=== PATIENT | female | born 1950 | race Caucasian/White ===

== ENCOUNTER → 2022-03-13 14:32 | Outpatient (BNVA) | payer MEDICARE, OTHER, SELFPAY | PROVIDERS: Family Provider Family Medicine; PCP Family Medicine; Visit Provider Internal Medicine Cardiovascular Disease | DX: I25.10 Atherosclerotic heart disease of native coronary artery without angina pectoris (principal); R06.02 Shortness of breath; I77.811 Abdominal aortic ectasia; E78.2 Mixed hyperlipidemia; I10 Essential (primary) hypertension; Z87.891 Personal history of nicotine dependence; R94.31 Abnormal electrocardiogram [ECG] [EKG] | CPT/HCPCS: 93005; 99204 ==

== ENCOUNTER 2022-04-24 13:34 | Outpatient (CLI) | payer MEDICARE, OTHER, SELFPAY ==
--- NOTE | 2022-04-24 13:45 | USCV_ITS ---
Meka Garibay Age: 71 Gender: F : 1950 Exam Date: 04/24/2022 13:49 Ordering Phys: China Lima MD ([email or web address]) Technologist: TAMIA [place] [facility] [place]: SOB/ASHD BP: 124 / 80 HR: 61 Rhythm: Sinus Technical Quality: Good MEASUREMENTS (Male / Female) Normal Values 2D ECHO LV Diastolic Diameter PLAX 4.4 cm 4.2 - 5.9 / 3.9 - 5.3 cm LV Systolic Diameter PLAX 3.3 cm IVS Diastolic Thickness 1.2 cm 0.6 - 1.0 / 0.6 - 0.9 cm IVS Systolic Thickness 1.8 cm LVPW Diastolic Thickness 0.9 cm 0.6 - 1.0 / 0.6 - 0.9 cm LVPW Systolic Thickness 1.3 cm LVOT Diameter 2.0 cm LV Ejection Fraction 2D Teich 50.3 % LV Ejection Fraction MOD 2C 55.7 % LV Ejection Fraction 2C AL 59.7 % LA Diameter 2.7 cm LA Width 2.8 cm LA Height 4.5 cm RA Width 3.1 cm RA Height 4.4 cm Aorta at Sinotubular Diameter 2.7 cm IVC Diameter 1.7 cm M-MODE MV E Point Septal Separation 0.7 cm DOPPLER AV Peak Velocity 156.0 cm/s LVOT Peak Velocity 111.0 cm/s AV Area Cont Eq vti 2.8 cm squared AV Area Cont Eq pk 2.3 cm squared MV Peak Velocity 103.0 cm/s MV Area PHT 2.5 cm squared Mitral E to A Ratio 0.7 MV E' Velocity 36.0 cm/s Mitral E to MV E' Ratio 11.2 Mitral E to LV E' Lateral Ratio 12.2 Mitral E to LV E' Septal Ratio 10.3 TR Peak Velocity 87.7 cm/s TR Peak Gradient 3.1 mmHg Right Atrial Pressure 3.0 mmHg Pulmonary Artery Systolic Pressu 6.1 mmHg PV Peak Velocity 99.0 cm/s RV Acceleration Time 0.1 s RV Ejection Time 0.3 s RV AcT/ET 0.3 FINDINGS Left Ventricle Normal left ventricular size and systolic function, EF 59 %. No regional wall motion abnormalities. Grade I/IV diastolic dysfunction (abnormal relaxation filling pattern), normal to mildly elevated filling pressures. Right Ventricle The right ventricle is normal in size and function. Right Atrium The right atrium is normal in size. Left Atrium The left atrium is normal in size. Mitral Valve No gross abnormalities noted Aortic Valve No gross abnormalities noted Tricuspid Valve Trace tricuspid valve regurgitation. Estimated pulmonary artery peak systolic pressure within normal limits Pulmonic Valve Pulmonic valve not well visualized. Pericardium Normal pericardium without effusion. Aorta Normal ascending aorta dimension. IVC Normal inferior vena cava. CONCLUSIONS Normal left ventricular size and systolic function, EF 59 %. No regional wall motion abnormalities. Grade I/IV diastolic dysfunction (abnormal relaxation filling pattern), normal to mildly elevated filling pressures. Trace tricuspid valve regurgitation. Estimated pulmonary artery peak systolic pressure within normal limits. There is no pericardial effusion. There are no intracardiac masses. No similar previous studies are available for comparison Dr China Lima MD [facility] (Electronically Signed) Final Date: 25 April 2022 15:20 S
== END 2022-04-24 13:35 | disposition home or self-care (01) ==
LOC: RAD 13:35
PROVIDERS: PCP Family Medicine; Visit Provider Internal Medicine Cardiovascular Disease
DX: I25.10 Atherosclerotic heart disease of native coronary artery without angina pectoris (principal); R06.02 Shortness of breath; I07.1 Rheumatic tricuspid insufficiency
CPT/HCPCS: 93306

== ENCOUNTER → 2022-06-26 13:50 | Outpatient (BNVA) | payer MEDICARE, OTHER, SELFPAY | PROVIDERS: PCP Family Medicine; Visit Provider Internal Medicine Cardiovascular Disease | DX: I70.90 Unspecified atherosclerosis (principal); I77.811 Abdominal aortic ectasia; I10 Essential (primary) hypertension; J44.9 Chronic obstructive pulmonary disease, unspecified; E78.2 Mixed hyperlipidemia; Z87.891 Personal history of nicotine dependence | CPT/HCPCS: 99214 ==

== ENCOUNTER 2022-09-18 08:51 | Outpatient (CLI) | payer MEDICARE, OTHER, SELFPAY ==
--- NOTE | 2022-09-18 | ECG_ITS ---
[facility] Test Date: 2022-09-18 Pat Name: Meka Garibay Department: Room: Gender: Female [place] Tier: : 1950 Requested By: China Lima Order Number: [id number] Sanjay MD: China Lima M.D. Interpretive Statements NAME OF STUDY: LEXISCAN SESTAMIBI STRESS TEST INDICATION: Shortness of Breath, PROCEDURE: At the baseline, the EKG revealed sinus rhythm with poor R wave progression. Diffuse nonspecific T wave changes. Normal CA and QRS duration.. The baseline heart was 63 bpm with a blood pressue of 128/68 mm of Hg Lexiscan was infused over a period of 20 seconds. A total of 0.4 milligrams of Lexiscan was infused. The stress phase was continued for a total of 5 minutes. Heart rate at the end of the stress phase was 68 bpm with a blood pressure 112/71 mm of Hg. The EKG at the peak infusion revealed no significant changes. Sestamibi was injected 20 seconds after the Lexiscan infusion. Heart rate at the end of the recovery phase was 71 bpm with a blood pressure of 114/66 mm of Hg. CONCLUSION: 1. No significant EKG changes with the LexiScan infusion 2. No LexiScan induced chest pain or cardiac arrhythmia 3. Normal blood pressure and heart rate response 4. Sestamibi/sestamibi perfusion scan pending; see separate report. Electronically Signed On 09-30-2022 14:31:53 WATCH LEADER by China Lima M.D. [id number]
[2022-09-18 09:26] VITALS: BMI 31.9
--- NOTE | 2022-09-18 09:31 | NMCV_ITS ---
NM milvia perf SPECT r/s* [id number] Meka Garibay Age: 71 Gender: F : 1950 Exam Date: 09/18/2022 10:21 Ordering Phys: China Lima MD ([email or web address]) Technologist: APRIL Sanford Exam Location: [facility] Indications: CORONARY ANGIOPLASTY STATUS; ATHEROSCLEROTIC HEART DISEASE STRESS TEST Please see separate stress test report in [facility] for full findings IMAGE PROTOCOL Rest/Stress 1 Lexiscan Day Radiopharmaceutical Dose (mCi) Administration Site Administered by Rest: Tc-99m 10.8 IV APRIL Hamm Sestamibi Stress:Tc-99m 32.8 IV APRIL Sanford Sestamirussel Rest: 18-Sep-2022 60 Discovery 630 Stress: 18-Sep-2022 30 Discovery 630 0.4mg Lexiscan. Images obtained in supine and prone position. SPECT RESULTS Technical Quality: Excellent Raw Data Analysis: Normal Image Corrections: No attenuation or motion correction applied Summed Stress Score: 0 Summed Rest Score: 0 Summed Difference Score: 0 PERFUSION FINDINGS Fairly uniform myocardial tracer uptake with no significant perfusion abnormalities FUNCTIONAL RESULTS (calculated via Gated SPECT) Stress Image LV EF (%): 73 Stress EDV (mL):94 TID: 0.95 Stress ESV (mL):25 FUNCTIONAL FINDINGS: Segmental wall motion analysis revealing no gross wall motion abnormalities IMPRESSIONS 1. Unremarkable Myocardial perfusion imaging. 2. Normal LV ejection fraction of 73%. 3. LV wall motion analysis revealing no gross wall motion abnormalities. 4. Normal LV volume. Low probability for coronary ischemia, based on the above findings Dr China Lima MD [facility] (Electronically Signed) Final Date: 18 September 2022 13:43 S
[2022-09-18] MEDS: regadenoson 0.4 Mg/5 ml Syringe IVP (11:30)
[2022-09-18 11:32] VITALS: BP 114/66; PULSE 67
== END 2022-09-18 08:52 | disposition home or self-care (01) ==
LOC: CDL 08:54
PROVIDERS: PCP Family Medicine; Visit Provider Internal Medicine Cardiovascular Disease
DX: R06.02 Shortness of breath (principal); Z98.61 Coronary angioplasty status; I25.10 Atherosclerotic heart disease of native coronary artery without angina pectoris
CPT/HCPCS: 36415; 78452; 93017; 96374; A9500; J2785

== ENCOUNTER → 2023-01-16 10:39 | Outpatient (BNVA) | payer MEDICARE, OTHER, SELFPAY | PROVIDERS: PCP Family Medicine; Visit Provider Specialist | DX: E78.2 Mixed hyperlipidemia (principal); I10 Essential (primary) hypertension; I70.90 Unspecified atherosclerosis; Z87.891 Personal history of nicotine dependence | CPT/HCPCS: 99214 ==

== ENCOUNTER 2023-03-08 07:54 | Emergency (ER) | payer MEDICARE, OTHER, SELFPAY ==
[2023-03-08 08:18] VITALS: BP 174/92; PULSE 72; RESP 17; TEMP 37; O2SAT 94
--- NOTE | 2023-03-08 08:29 | XR_ITS ---
WS: [id number] XR abdomen min 2V [id number] REASON FOR EXAM: abdominal pain FINDINGS: Significant volume of retained fecal material throughout the colon and rectum. No colon or small iwona l distention. No free air or retroperitoneal air is identified. No organomegaly or mass. No significant calcification. IMPRESSION: Significant volume of retained fecal material. No acute abnormality.
--- NOTE | 2023-03-08 08:39 | ED_ITS ---
Documented by User: KEESHA Chavez 03/08/23 11:25 HPI - Abdominal Pain General: Chief Complaint: Abdominal Pain Stated Complaint: abdominal pain Time Seen by Provider: 03/08/23 07:58 History of Present Illness: Patient is in today for lower abdominal pain since yesterday. Patient reports that yesterday she started having lower abdominal pain that worsened all through the night and today it is unbearable. She reports it gets all the way up to a 1 0 on a 0-to-10 scale. She reports that she has no known history of diverticulosis or diverticulitis. She reports that her last colonoscopy was 10 years ago and she does not know that she has ever had polyps. She reports that she has not had any diarrhea or constipation and her last normal bowel movement was yesterday which is typical for her. She denies any blood in her stools. She denies nausea or vomiting. She denies any urinary symptoms including hesitancy, urgency, dysuria. She denies fever or chills. She does offer that she has a history of an abdominal aneurysm which is followed by Dr. Lima. She states that Dr. Lima told her it was too small to do anything about. She is c oncerned with the ongoing pain that it could be related. Associated Symptoms: Denies chills, constipation, diarrhea, dysuria, fever(s), hematochezia, nausea and vomiting Review of Systems Const: Denies: fever(s) or chills Card: Denies: chest pain or palpitations Resp: Denies: dyspnea, productive cough or non-productive cough GI: Reports: abdominal pain; Denies: nausea, vomiting, diarrhea, constipation or hematochezia : Denies: flank pain, difficulty voiding or dysuria [facility] ED PFSH: Medical History AAA (abdominal aortic aneurysm) without rupture Atherosclerotic heart disease Benign hypertension COPD (chronic obstructive pulmonary disease) Mixed hyperlipidemia Family History Mother Hypertension Cancer Father Cancer Denies family history of Diabetes CAD (coronary artery disease) Clotting disorder Dementia Chronic kidney disease (CKD) Suicide Anesthesia complication Bleeding disorder Lung disease Stroke Social History Smoking and tobacco status: former smoker Alcohol intake: never Substance/Drug Use: never Physical Exam Const: COMMON NORMALS: patient oriented x3 and alert OTHER: Patient does appear to be in pain. She grimaces throughout the entire examination Neck/C-Spine: COMMON NORMALS: no JVD Resp: COMMON NORMALS: normal respiratory effort, No use of accessory muscles and clear to auscultation bilaterally AUSCULTATION: clear to auscultation bilaterally Cardio: COMMON NORMALS: no JVD, regular rate, regular rhythm, S1 normal heart sound present and S2 normal heart sound present RATE: regular rate RHYTHM: regular rhythm HEART SOUNDS: S1 normal heart sound present and S2 normal heart sound present GI: COMMON NORMALS: Soft to palpation INSPECTION: Yes normal to inspection PALPATION: Yes Soft to palpation, Yes Tenderness to palpation present (GI) Details: RLQ, Yes Guarding due to palpation present (GI) in the RLQ and Yes Rebound tenderness present Details: McBurney's point Neuro: COMMON NORMALS: patient oriented x3 and moves all extremities SENSORIUM/ORIENTATION: Yes alert Course Vital Signs: Vital signs: Vital Signs Temperature 98.6 F 03/08/23 08:18 Pulse Rate 72 03/08/23 11:29 Respiratory Rate 16 03/08/23 11:29 Blood Pressure 174/92 03/08/23 08:18 Pulse Oximetry 95 03/08/23 11:29 Oxygen Delivery Me thod Room Air 03/08/23 08:18 MDM - Abdominal Pain Medical Decision Making Patient is in for 2 days of lower abdominal pain. On physical exam she has significant guarding right lower quadrant abdominal pain positive for guarding and tenderness at McBurney's point. Labs show a normal white blood cell count slightly elevated glucose at 122 all other labs are essentially unremarkable. CT abdomen done with no contrast given patient's reported breathing difficulties anytime she has shellfish or fish containing products. CT abdomen shows acute sigmoid diverticulitis without stranding or evidence of drainable abscess. Will treat patient for diverticulitis with Cipro and metronidazole. Patient should be on a clear liquid diet for 2 to 3 days and then slowly advance diet as tolerated. Follow-up with primary care provider next week for reevaluation. Return to the ER as needed for any new or worsening symptoms Lab Data 03/08/23 08:35 03/08/23 08:35 Labs/Radiology: Laboratory Results WBC 8.9 10^3/uL (4.0-10.0) 03/08/23 08:35 RBC 4.20 10^6/uL (4.1-5.3) 03/08/23 08:35 Hgb 12.3 g/dL (11.5-15.3) 03/08/23 08:35 Hct 38.1 % (37.0-47.0) 03/08/23 08:35 MCV 90.7 fl (81-99) 03/08/23 08:35 MCH 29.3 pg (28.0-34.0) 03/08/23 08:35 MCHC 32.3 g/dL (30.0-36.0) 03/08/23 08:35 RDW 13.0 % (12.1-15.1) 03/08/23 08:35 Plt Count 251 10^3/cmm (130-400) 03/08/23 08:35 MPV 9.5 fL (7.4-10.4) 03/08/23 08:35 Neut % (Auto) 76.2 % 03/08/23 08:35 Lymph % (Auto) 14.8 % 03/08/23 08:35 Simpson % (Auto) 6.7 % 03/08/23 08:35 Eos % (Auto) 1.6 % 03/08/23 08:35 Baso % (Auto) 0.3 % 03/08/23 08:35 Neut # (Auto) 6.81 10^3/uL (1.8-7.7) 03/08/23 08:35 Lymph # (Auto) 1.3 10^3/uL (0.8-4.8) 03/08/23 08:35 Simpson # (Auto) 0.6 10^3/uL (0.2-0.9) 03/08/23 08:35 Eos # (Auto) 0.1 10^3/uL (0.0-0.8) 03/08/23 08:35 Baso # (Auto) 0.0 10^3/uL (0.0-0.1) 03/08/23 08:35 Nucleated RBC % (auto) 0 % 03/08/23 08:35 Nucleated RBCs # 0.0 /100WBC 03/08/23 08:35 Sodium 140 mmol/L (136-145) 03/08/23 08:35 Potassium 4.3 mmol/L (3.5-5.1) 03/08/23 08:35 Chloride 104 mmol/L (98-107) 03/08/23 08:35 Carbon Dioxide 26 mmol/L (22-29) 03/08/23 08:35 Anion Gap 14.3 (5-19) 03/08/23 08:35 BUN 12 mg/dL (8-23) 03/08/23 08:35 Creatinine 0.8 mg/dL (0.5-0.9) 03/08/23 08:35 GFR Calculation Not Reportable 03/08/23 08:35 Glucose 122 mg/dL (65-115) H 03/08/23 08:35 Calculated Osmolality 291 mOsm/kg (285-295) 03/08/23 08:35 Calcium 9.4 mg/dL (8.5-10.5) 03/08/23 08:35 Total Bilirubin 0.3 mg/dL (0.15-1.2) 03/08/23 08:35 AST 14 U/L (0-32) 03/08/23 08:35 ALT 13 U/L (0-33) 03/08/23 08:35 Alkaline Phosphatase 97 U/L (35-105) 03/08/23 08:35 Total Protein 6.9 g/dL (6.6-8.7) 03/08/23 08:35 Albumin 4.0 g/dL (3.5-5.2) 03/08/23 08:35 Globulin 2.9 g/dL (1.3-4.6) 03/08/23 08:35 Discharge Plan Discharge Patient Disposition: Home Clinical Impression: Diverticulitis of sigmoid colon Condition: Stable Prescriptions: New metronidazole 500 mg tablet 500 mg PO BID 7 Days Qty: 14 0RF Cipro 500 mg tablet 500 mg PO BID 7 Days Qty: 14 0RF No Action lisinopril 20 mg tablet 20 mg PO DAILY cholecalciferol (vitamin D3) 125 mcg (5,000 unit) capsule 125 mcg PO DAILY albuterol sulfate 0.63 mg/3 mL solution for nebulization 0.63 mg inhalation QID PRN (Reason: Shortness Of Breath Or Wheezing) fluticasone propionate [Flonase Allergy Relief] 50 mcg/actuation spray,suspension 1 spray intranasal DAILY Rx Instructions: administer into each nostril potassium gluconate 595 mg (99 mg) tablet 595 mg PO DAILY magnesium oxide 400 mg (241.3 mg magnesium) tablet 400 mg PO DAILY zinc acetate 50 mg (zinc) Capsule 50 mg PO DAILY Discharge Orders: Discharge ED (Routine); Ordered 03/08/23 Ordered By: Debbie Monae Referrals: Juan Jose Harding [Primary Care Provider] - Discharge Diet: Clear Liquid Discharge Activity: Increase activity as tolerated Patient Instructions: Diverticulitis (ED), Diverticulitis Diet (ED) Activity Restrictions/Additional Instructions: I recommend a clear liquid diet for 2 to 3 days and then slowly advance diet as tolerated. You have to rest your gut. Take antibiotics as directed starting today. Call today and make an appointment to follow-up with your primary care provider the beginning of next week. Return to the ER as needed for any new or worsening symptoms. Coding Level of Care Code ED Car Hopper for Chg Fwd Documented by User: Yonas Dale MD 03/13/23 17:44 HPI - Abdominal Pain General: Chief Complaint: Abdominal Pain Stated Complaint: abdominal pain Time Seen by Provider: 03/08/23 07:58 PFS ED PFSH: Medical History AAA (abdominal aortic aneurysm) without rupture Atherosclerotic heart disease Benign hypertension COPD (chronic obstructive pulmonary disease) Mixed hyperlipidemia Family History Mother Hypertension Cancer Father Cancer Denies family history of Diabetes CAD (coronary artery disease) Clotting disorder Dementia Chronic kidney disease (CKD) Suicide Anesthesia complication Bleeding disorder Lung disease Stroke Social History Smoking and tobacco status: former smoker Alcohol intake: never Substance/Drug Use: never Course Vital Signs: Vital signs: Vital Signs Temperature 98.6 F 03/08/23 08:18 Pulse Rate 72 03/08/23 11:29 Respiratory Rate 16 03/08/23 11:29 Blood Pressure 174/92 03/08/23 08:18 Pulse Oximetry 95 03/08/23 11:29 Oxygen Delivery Me thod Room Air 03/08/23 08:18 MDM - Abdominal Pain Medical Decision Making Patient is in for 2 days of lower abdominal pain. On physical exam she has significant guarding right lower quadrant abdominal pain positive for guarding and tenderness at McBurney's point. Labs show a normal white blood cell count slightly elevated glucose at 122 all other labs are essentially unremarkable. CT abdomen done with no contrast given patient's reported breathing difficulties anytime she has shellfish or fish containing products. CT abdomen shows acute sigmoid diverticulitis without stranding or evidence of drainable abscess. Will treat patient for diverticulitis with Cipro and metronidazole. Patient should be on a clear liquid diet for 2 to 3 days and then slowly advance diet as tolerated. Follow-up with primary care provider next week for reevaluation. Return to the ER as needed for any new or worsening symptoms I reviewed documentation, labs, imaging. Yonas Dale MD Emergency Medicine Lab Data 03/08/23 08:35 03/08/23 08:35 Labs/Radiology: Laboratory Results WBC 8.9 10^3/uL (4.0-10.0) 03/08/23 08:35 RBC 4.20 10^6/uL (4.1-5.3) 03/08/23 08:35 Hgb 12.3 g/dL (11.5-15.3) 03/08/23 08:35 Hct 38.1 % (37.0-47.0) 03/08/23 08:35 MCV 90.7 fl (81-99) 03/08/23 08:35 MCH 29.3 pg (28.0-34.0) 03/08/23 08:35 MCHC 32.3 g/dL (30.0-36.0) 03/08/23 08:35 RDW 13.0 % (12.1-15.1) 03/08/23 08:35 Plt Count 251 10^3/cmm (130-400) 03/08/23 08:35 MPV 9.5 fL (7.4-10.4) 03/08/23 08:35 Neut % (Auto) 76.2 % 03/08/23 08:35 Lymph % (Auto) 14.8 % 03/08/23 08:35 Simpson % (Auto) 6.7 % 03/08/23 08:35 Eos % (Auto) 1.6 % 03/08/23 08:35 Baso % (Auto) 0.3 % 03/08/23 08:35 Neut # (Auto) 6.81 10^3/uL (1.8-7.7) 03/08/23 08:35 Lymph # (Auto) 1.3 10^3/uL (0.8-4.8) 03/08/23 08:35 Simpson # (Auto) 0.6 10^3/uL (0.2-0.9) 03/08/23 08:35 Eos # (Auto) 0.1 10^3/uL (0.0-0.8) 03/08/23 08:35 Baso # (Auto) 0.0 10^3/uL (0.0-0.1) 03/08/23 08:35 Nucleated RBC % (auto) 0 % 03/08/23 08:35 Nucleated RBCs # 0.0 /100WBC 03/08/23 08:35 Sodium 140 mmol/L (136-145) 03/08/23 08:35 Potassium 4.3 mmol/L (3.5-5.1) 03/08/23 08:35 Chloride 104 mmol/L (98-107) 03/08/23 08:35 Carbon Dioxide 26 mmol/L (22-29) 03/08/23 08:35 Anion Gap 14.3 (5-19) 03/08/23 08:35 BUN 12 mg/dL (8-23) 03/08/23 08:35 Creatinine 0.8 mg/dL (0.5-0.9) 03/08/23 08:35 GFR Calculation Not Reportable 03/08/23 08:35 Glucose 122 mg/dL (65-115) H 03/08/23 08:35 Calculated Osmolality 291 mOsm/kg (285-295) 03/08/23 08:35 Calcium 9.4 mg/dL (8.5-10.5) 03/08/23 08:35 Total Bilirubin 0.3 mg/dL (0.15-1.2) 03/08/23 08:35 AST 14 U/L (0-32) 03/08/23 08:35 ALT 13 U/L (0-33) 03/08/23 08:35 Alkaline Phosphatase 97 U/L (35-105) 03/08/23 08:35 Total Protein 6.9 g/dL (6.6-8.7) 03/08/23 08:35 Albumin 4.0 g/dL (3.5-5.2) 03/08/23 08:35 Globulin 2.9 g/dL (1.3-4.6) 03/08/23 08:35 Discharge Plan Discharge Patient Disposition: Home Clinical Impression: Diverticulitis of sigmoid colon Condition: Stable Prescriptions: New metronidazole 500 mg tablet 500 mg PO BID 7 Days Qty: 14 0RF Cipro 500 mg tablet 500 mg PO BID 7 Days Qty: 14 0RF No Action lisinopril 20 mg tablet 20 mg PO DAILY cholecalciferol (vitamin D3) 125 mcg (5,000 unit) capsule 125 mcg PO DAILY albuterol sulfate 0.63 mg/3 mL solution for nebulization 0.63 mg inhalation QID PRN (Reason: Shortness Of Breath Or Wheezing) fluticasone propionate [Flonase Allergy Relief] 50 mcg/actuation spray,suspension 1 spray intranasal DAILY Rx Instructions: administer into each nostril potassium gluconate 595 mg (99 mg) tablet 595 mg PO DAILY magnesium oxide 400 mg (241.3 mg magnesium) tablet 400 mg PO DAILY zinc acetate 50 mg (zinc) Capsule 50 mg PO DAILY Discharge Orders: Discharge ED (Routine); Ordered 03/08/23 Ordered By: Debbie Monae Referrals: Juan Jose Harding [Primary Care Provider] - Discharge Diet: Clear Liquid Discharge Activity: Increase activity as tolerated Patient Instructions: Diverticulitis (ED), Diverticulitis Diet (ED) Activity Restrictions/Additional Instructions: I recommend a clear liquid diet for 2 to 3 days and then slowly advance diet as tolerated. You have to rest your gut. Take antibiotics as directed starting today. Call today and make an appointment to follow-up with your primary care provider the beginning of next week. Return to the ER as needed for any new or worsening symptoms. Coding Level of Care Code ED Car Hopper for Mor Coelho
[2023-03-08 08:42] LABS: Basophils % 0.3 %; Eosinophils # 0.1 10^3/uL (0.0-0.8); Eosinophils % 1.6 %; Hematocrit 38.1 % (37.0-47.0); Hemoglobin 12.3 g/dL (11.5-15.3); Lymphocytes # 1.3 10^3/uL (0.8-4.8); Lymphocytes % 14.8 %; Mean Corpuscular HGB Conc 32.3 g/dL (30.0-36.0); Mean Corpuscular Hemoglobin 29.3 pg (28.0-34.0); Mean Corpuscular Volume 90.7 fl (81-99); Mean Platelet Volume 9.5 fL (7.4-10.4); Monocytes # 0.6 10^3/uL (0.2-0.9); Monocytes % 6.7 %; Neutrophils # 6.81 10^3/uL (1.8-7.7); Neutrophils % 76.2 %; Nucleated Red Blood Cells % 0 %; Platelet Count 251 10^3/cmm (130-400); White Blood Count 8.9 10^3/uL (4.0-10.0)
[2023-03-08 09:08] LABS: Alanine Aminotransferase 13 U/L (0-33); Alkaline Phosphatase 97 U/L (35-105); Aspartate Amino Transferase 14 U/L (0-32); Blood Urea Nitrogen 12 mg/dL (8-23); Calcium 9.4 mg/dL (8.5-10.5); Carbon Dioxide 26 mmol/L (22-29); Chloride 104 mmol/L (98-107); Globulin 2.9 g/dL (1.3-4.6); Glucose 122 mg/dL (65-115); Osmolality Calculated 291 mOsm/kg (285-295); Sodium 140 mmol/L (136-145); Total Bilirubin 0.3 mg/dL (0.15-1.2); Total Protein 6.9 g/dL (6.6-8.7)
[2023-03-08 09:12] LABS: Anion Gap 14.3 (5-19); Potassium 4.3 mmol/L (3.5-5.1)
[2023-03-08] MEDS: morphine 4 mg/mL SDV 1 mL IVP (09:36)
[2023-03-08] MEDS: ondansetron 2 mg/ML SDV 2 mL 4 MG IVP (09:36)
--- NOTE | 2023-03-08 09:58 | CT_ITS ---
WS: [id number] CT ABDOMEN PELVIS TECHNIQUE: Noncontrast CT of the abdomen and pelvis with coronal and sagittal reformatted images. CLINICAL INFORMATION: RLQ abd pain COMPARISON: None. DLP: 830.[address] scans at [facility] use at least one of these dose optimization techniques: automated e xposure control; mA and/or kV adjustment per patient size (includes targeted exams where dose is matc hed to clinical indication); or iterative reconstruction. FINDINGS: Diffuse thickening with inflammatory stranding and edema involving the sigmoid colon compatible with acute diverticulitis. No drainable fluid collection or abscess. Small amount of free fluid in the cul -de-sac. Recommend follow-up to resolution. No high-grade small or large bowel obstruction. Normal appendix in the right lower quadrant. Liver si ze upper limits of normal. Otherwise normal noncontrast liver. Tiny esophageal hiatal hernia. Slight bibasal atelectasis. Hazy atelectasis in the lingula. Normal noncontrast spleen. Normal noncontrast p ancreas. Adrenal glands are normal. No hydronephrosis in either kidney. Noncontrast gallbladder appears normal. Normal caliber abdominal aorta. Aortic calcification. Mild chintan mbar curve. Tiny fat-containing umbilical hernia. IMPRESSION: 1. Findings compatible with acute sigmoid diverticulitis described above. 2. No drainable fluid collections or abscess. 3. Recommend follow-up to resolution.
[2023-03-08 11:29] VITALS: PULSE 72; RESP 16; O2SAT 95
== END 2023-03-08 11:33 | disposition home or self-care (01) ==
PROVIDERS: Emergency Provider Nurse Practitioner Family; PCP Family Medicine
DX: K57.32 Diverticulitis of large intestine without perforation or abscess without bleeding (principal); Z87.891 Personal history of nicotine dependence; J44.9 Chronic obstructive pulmonary disease, unspecified; I10 Essential (primary) hypertension; E78.2 Mixed hyperlipidemia
CPT/HCPCS: 74019; 74176; 80053; 85025; 96374; 96375; 99285; J2270; J2405

== ENCOUNTER → 2024-01-28 10:13 | Outpatient (BNVA) | payer MEDICARE, OTHER, SELFPAY | PROVIDERS: PCP Family Medicine; Referring Provider Family Medicine; Visit Provider Internal Medicine Cardiovascular Disease | DX: I25.10 Atherosclerotic heart disease of native coronary artery without angina pectoris (principal); I10 Essential (primary) hypertension; E78.2 Mixed hyperlipidemia; I77.811 Abdominal aortic ectasia; Z87.891 Personal history of nicotine dependence | CPT/HCPCS: 99214 ==

== ENCOUNTER → 2024-08-07 10:52 | Outpatient (BNVA) | payer MEDICARE, OTHER, SELFPAY | PROVIDERS: PCP Family Medicine; Visit Provider Internal Medicine Cardiovascular Disease | DX: I25.10 Atherosclerotic heart disease of native coronary artery without angina pectoris (principal); I77.811 Abdominal aortic ectasia; I10 Essential (primary) hypertension; E78.2 Mixed hyperlipidemia; Z87.891 Personal history of nicotine dependence | CPT/HCPCS: 99214 ==

== ENCOUNTER 2024-08-28 11:05 | Outpatient (CLI) | payer MEDICARE, OTHER, SELFPAY ==
--- NOTE | 2024-08-28 11:11 | MM_ITS ---
WS: [id number] VIEWS: MLO, CC, and ML views RIGHT breast. 3D digital tomosynthesis is also included in this exam. Comparison made with prior exam of outside RIGHT mammogram performed 06/13/2024.. Findings: There are scattered areas of fibroglandular density. A 0.9 x 0.7 cm irregular lobulated nodule is seen in the upper outer quadrant of the RIGHT breast at posterior depth. Malignancy is not excluded. There were no other suspicious nodules identified in the RIGHT breast. No tumor calcification or architectural distortion is seen. Renal ultrasound is indica suzanne for further work-up. MM/MM diag RT tomosynthesis [id number] IMPRESSION: 1. Suspicious nodule in the upper outer quadrant of the RIGHT breast as noted a betsy. BI-RADS Category 0. Regional ultrasound recommended. Impression: BI-RADS: 0 - Incomplete: Need additional imaging evaluation FOLLOW-UP: Need Additional Imaging This mammogram was also analyzed by the Computer Aided Detection System R2 Imag e Independent Consultant.
--- NOTE | 2024-08-28 11:11 | US_ITS ---
WS: [id number] Exam: US breast RT limited* [id number] Date/Time of Exam: 08/28/2024 11:43 AM Reason For Exam: ABNORMAL MAMMOGRAM Regional ultrasound of the upper outer quadrant of the RIGHT breast is performed. A 1.2 x 0.9 x 0.8 cm irregular solid mass is noted at the 9 o'clock position 6 cm from the nipple. Th e mass is mostly hypoechoic. Malignancy is considered likely. There were no other solid nodules or ma sses in this region. US/US breast RT limited* [id number] IMPRESSION: 1. Suspicious solid nodule in the upper outer quadrant of the RIGHT breast as d iscussed above. BI-RADS Category 4. Biopsy is indicated. These results and wil mmendations were discussed with the patient 1213 08/28/2024
--- NOTE | 2024-08-28 12:15 | USCV_ITS ---
Meka Garibay Age: 73 Gender: F : 1950 Exam Date: 08/28/2024 12:11 Ordering Phys: China Lima MD ([email or web address]) Technologist: JOSE [place] [facility] [place]: AAA HISTORY: Diameter (cm) AP x Transverse x Length Velocity (cm/s) Waveform Prox Aorta: 2.60 x 2.70 x 63.00 Triphasic Mid Aorta: 1.90 x 1.90 x 72.10 Triphasic Distal Aorta: 2.10 x 2.00 x 77.00 Triphasic Right Iliac Prox: 1.12 x 1.55 x 57.10 Triphasic Left Iliac Prox: 1.35 x 1.24 x 67.80 Triphasic Stent Prox Landing x x Aneurysmal Sac Max x x Lt Lat Sac Dim Rt Lat Sac Dim Stent Dist Landing x x Right Iliac Stent x x Left Iliac Stent x x Right Renal Art Left Renal Art FINDINGS: CONCLUSIONS No evidence of abdominal aortic or bilateral iliac aneurysm. Mild arteriovascular disease within the abdominal aorta. Pancho Dean MD (Electronically Signed) Final Date: 28 August 2024 16:50 S
== END 2024-08-28 11:06 | disposition home or self-care (01) ==
LOC: RAD 11:06
PROVIDERS: PCP Family Medicine; Visit Provider Nurse Practitioner Family
DX: R92.8 Other abnormal and inconclusive findings on diagnostic imaging of breast (principal); N63.11 Unspecified lump in the right breast, upper outer quadrant; I77.811 Abdominal aortic ectasia; R92.323 Mammographic fibroglandular density, bilateral breasts; R93.5 Abnormal findings on diagnostic imaging of other abdominal regions, including retroperitoneum
CPT/HCPCS: 76642; 77061; 93978; G0279

== ENCOUNTER 2024-10-15 10:56 | Outpatient (CLI) | payer MEDICARE, OTHER, SELFPAY ==
--- NOTE | 2024-10-15 11:00 | US_ITS ---
WS: [id number] ULTRASOUND-GUIDED RIGHT BREAST BIOPSY CLINICAL INFORMATION: BREAST LUMP ON RIGHT SIDE @ 9 OCLOCK POSITION/ABN MAMMOGRAM FINDINGS: The procedure including risks, benefits, and complications were discussed with the patient who agreed to proceed. Using sterile technique patient was prepped and draped in the usual sterile fashion. After 1% lidocaine utilizing real-time ultrasound guidance 4 14-gauge cores were obtained of the RIGHT breast lesion at the 9 o'clock position 6 cm from the nipple. No clip was placed per patient preference. US/[place] [id number] IMPRESSION: 1. Uncomplicated ultrasound-guided RIGHT breast biopsy. 2. 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 Pr ecursor lesion DCIS identified. 3. See pathology report for breast prognostic profile and further detail 4. Recommend breast surgery consultation. DENSITY: There are scattered areas of fibroglandular density. BI-RADS: 6 - Known Biopsy - Proven Malignancy. FOLLOW UP: Surgical Biopsy Recommended Recommend breast surgery consultation for surgical excision
[2024-10-21 09:13] LABS: Breast Profile ER,PR,HER2,Ki-6 See Report
== END 2024-10-15 10:57 | disposition home or self-care (01) ==
LOC: RAD 10:57
PROVIDERS: PCP Family Medicine; Visit Provider Nurse Practitioner Family
DX: C50.811 Malignant neoplasm of overlapping sites of right female breast (principal); R92.0 Mammographic microcalcification found on diagnostic imaging of breast; R92.323 Mammographic fibroglandular density, bilateral breasts
CPT/HCPCS: 19083; 88305; 88361; 88374

== ENCOUNTER 2024-10-27 15:08 | Oncology outpatient (recurring) (ONCR) | payer MEDICARE, OTHER, SELFPAY | END 2024-10-27 23:59 | disposition home or self-care (01) | LOC: ONCMED 15:08 | PROVIDERS: PCP Family Medicine; Visit Provider Internal Medicine Medical Oncology | DX: C50.911 Malignant neoplasm of unspecified site of right female breast (principal); Z87.891 Personal history of nicotine dependence | CPT/HCPCS: 99205 ==

== ENCOUNTER → 2024-11-03 14:06 | Outpatient (BNVA) | payer MEDICARE, OTHER, SELFPAY | PROVIDERS: PCP Family Medicine; Referring Provider Internal Medicine Medical Oncology; Visit Provider Student in an Organized Health Care Education/Training Program | DX: N64.59 Other signs and symptoms in breast (principal) | CPT/HCPCS: 99204 ==

== ENCOUNTER 2024-12-15 10:06 | Oncology outpatient (recurring) (ONCR) | payer MEDICARE, OTHER, SELFPAY ==
--- NOTE | 2024-12-15 12:34 | N.ONRAD NP_ITS ---
Radiation Oncology New Patient Visit Patient: Meka Garibay MR#: [id number] : 1950> Age: 74> Sex: Female> Dictated by: Dr. Joe Montalvo Date of Service: 12/15/2024 Referring Physician(s) : Diagnosis: Pathologic St I(T1b, N0, M0) ER+. SC+ Gr 1 IDC of right breast s/p bx 10/15/2024 followed by resection and axillary LN sampling 11/28/2024. Radiotherapy to date: Summary none Chief Complaint / History of Present Illness: She underwent routine MMG 08/28/2024 which revealed 0.9 x 0.7 cm nodule in UOQ right breast confirmed on U/S which revealed a 1.2 x 0.9 x 0.8 cm mass at 9 o???clock 6 cm from nipple. She felt well and had no sxs. 10/15/2024 underwent biopsy which revealed Gr 2 IDC ER 100%, SC 65%, Prq5Ouf negative, Ki 67 5%. 11/28/[address] sampling. Gr 1 IDC 1.2 cm in greatest size. All margins and re excision margins clear. 0/1 LN involved. Doing well post op. Plans on bus trip to [facility] 01/14 to 01/23/2025. Living independently with her disabled . 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 She has not yet seen medical oncology in follow-up to discuss adjuvant endocrine treatment. Current Medications: albuterol sulfate 0.63 mg inhalation QID PRN cetirizine 10 mg PO DAILY PRN cholecalciferol (vitamin D3) 125 mcg PO DAILY fluticasone propionate 50 mcg/actuation (Flonase Allergy Relief) 1 spray intranasal DAILY lisinopril 20 mg PO DAILY magnesium oxide 400 mg PO DAILY potassium gluconate 595 mg PO DAILY zinc acetate 50 mg PO DAILY Allergies: Fish Containing Products Allergy (Verified 10/27/24 15:12) Unknown sulfur (From Sulfur-8) Allergy (Verified 10/27/24 15:12) unknown Medical History: No history of collagen vascular disease. No previous radiation therapy. Atherosclerotic heart disease AAA (abdominal aortic aneurysm) without rupture Mixed hyperlipidemia Benign hypertension COPD (chronic obstructive pulmonary disease) Surgical History: Family History: Mother Hypertension Cancer Father Cancer Denies family history of Diabetes CAD (coronary artery disease) Clotting disorder Dementia Chronic kidney disease (CKD) Suicide Anesthesia complication Bleeding disorder Lung disease Stroke Social History: Smoking and tobacco/nicotine status: former use of tobacco/nicotine Alcohol intake: never Substance/Drug Use: never. 38 years. Lost son. No other children. 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 Current Complaints / Review of Systems: . Vital Signs: Performed on 12/15/2024 10:09 AM BMI - 31.313 kg/m2 (high), Height - 66 in, Weight - 194 lbs, Temperature - 97.2 f, Pulse - 71 /min, Respiration - 17 /min, O2 Sat - 98 %, Pain - 0, Fatigue - 0 and BP - 132/ 65 mm(hg). Physical Exam: Robust appropriate in NAD. No palpable adenopathy. Arms full range of motion with no arm edema. Right axillary and breast incisions well healed. Some axillary fullness with no palpable seroma. Resolving ecchymosis central right breast with no erythema or tenderness. Performance Status: ECOG PS 0 Pathology: See above Lab: none Imaging: See HPI Impression: Favorable St I Gr 1 IDC of right breast. Recommend adjuvant treatment to the breast to 40 Gy to whole breast in 15 fractions followed by 12 Gy boost to excision site in 5 fractions. She will need to seen med onc in follow up to discuss appropriate endocrine adjuvant treatment. She would like to delay treatment until after her bus trip that returns here on 01/23/2025. Signed by: 12/15/2024 12:32:55 PM <<Signature on File>> Time spent with patient: CPT Code: CPT Code:
== END 2024-12-27 23:59 | disposition home or self-care (01) ==
PROVIDERS: PCP Family Medicine; Visit Provider Radiology Radiation Oncology
DX: C50.411 Malignant neoplasm of upper-outer quadrant of right female breast (principal); Z17.0 Estrogen receptor positive status [ER+]
CPT/HCPCS: 99205

== ENCOUNTER 2025-02-26 10:47 | Oncology outpatient (recurring) (ONCR) | payer MEDICARE, OTHER, SELFPAY ==
--- NOTE | 2025-02-02 11:21 | ONCRAD EPV_ITS ---
Radiation Oncology Established Patient Visit Patient: Meka Garibay [id number] : 1950 Age: 74 Sex: Female Dictated by: Dr. Joe Montalvo Date of Service: 02/02/2025 Referring Physician(s) : Diagnosis: C50.411 - Malignant neoplasm of upper-outer quadrant of right female breast, Diagnosed 12/15/2024 (Active) Radiotherapy to Date: None, here now for FU for simulation to right breast. Current History: She went on a trip over [address] [place] [address] and [facility] over 10 days. Now exhausted with sinusitis and SOB. Current Medications: albuterol sulfate 0.63 mg inhalation QID PRN cetirizine 10 mg PO DAILY PRN cholecalciferol (vitamin D3) 125 mcg PO DAILY fluticasone propionate 50 mcg/actuation (Flonase Allergy Relief) 1 spray intranasal DAILY lisinopril 20 mg PO DAILY magnesium oxide 400 mg PO DAILY potassium gluconate 595 mg PO DAILY zinc acetate 50 mg PO DAILY Allergies: Fish Containing Products Allergy (Verified 10/27/24 15:12) Unknown sulfur (From Sulfur-8) Allergy (Verified 10/27/24 15:12) unknown Vital Signs: Performed on 02/02/2025 10:39 AM BMI - 30.925 kg/m2 (high), Height - 66 in, Weight - 191.6 lbs, Temperature - 97.7 f, Pulse - 68 /min, Respiration - 20 /min, O2 Sat - 96 %, Pain - 0, Fatigue - 0 and BP - 137/ 82 mm(hg). Physical Exam: General: Alert and oriented x 3. No acute distress. Some shortness of breath with speaking. Performance Status: ECOG PS 1 Lab: None pending. Pathology: Primary, c50.411 - malignant neoplasm of upper-outer quadrant of right female breast, Diagnosed 12/15/2024 (active) . Imaging: See HPI Impression: ST I IDC of right breast. New SOB following recent trip. May be exacerbation of COPD vs pneumonia or both. She will see her PMD later today. Will plan to see her early next week for simulation assuming that her acute respiratory event will have stabilized by that time. Signed by: 02/02/2025 11:19:47 AM <<Signature on File>> Time spent with patient: 15 minute. CPT Code: CPT Code:
--- NOTE | 2025-02-24 11:07 | ONCRAD TMN_ITS ---
Radiation Oncology Weekly Treatment Management Patient: Meka Garibay MR#: [id number] : 1950 Attending Physician: Dr. oCdy Barron Date of Service: 02/24/2025 Referring Physician(s) : Diagnosis: C50.411 - Malignant neoplasm of upper-outer quadrant of right female breast, Diagnosed 12/15/2024 (Active) Radiotherapy to date: Course: RT Breast 2024 Treatment Site: RT Breast Initial, Ref. ID: CTV_WB, Energy: 15X/6X, Dose/Fx (cGy): 266.7, #Fx: 2 / 15, Dose Correction (cGy): 0, Total Dose Delivered (cGy): 533.3, Start Date: 02/23/2025, Elapsed Days: 1 Reason for visit: The patient is being seen today as part of their regularly scheduled weekly on treatment visits to assess for acute toxicities from radiotherapy. Review of Systems: Just starting her treatment on the Right Breast. She is going to start using creams. Skin she shows no issues at this time. Vital Signs: Performed on 02/24/2025 10:48 AM BMI - 29.795 kg/m2 (high), Height - 66 in, Weight - 184.6 lbs, Temperature - 97.9 f, Pulse - 62 /min, Respiration - 17 /min, O2 Sat - 97 %, Pain - 0, Fatigue - 0 and BP - 147/ 87 mm(hg)(high/). Physical Exam: AAOx3. Skin intact Imaging: Radiation therapy imaging related to accurate target localization (i.e. KV, MV and CBCT) was reviewed. Appropriate changes, if any, were made to ensure treatment accuracy. Plan: Continue XRT Start using creams liberally. Signed by: Cody Barron 02/24/2025 11:05:33 AM
== END 2025-02-26 23:59 | disposition home or self-care (01) ==
PROVIDERS: PCP Family Medicine; Visit Provider Radiology Radiation Oncology
DX: Z51.0 Encounter for antineoplastic radiation therapy (principal); C50.411 Malignant neoplasm of upper-outer quadrant of right female breast
CPT/HCPCS: 77290; 77295; 77300; 77334; 77412; 99024; 99213

== ENCOUNTER 2025-03-18 09:07 | Outpatient (CLI) | payer MEDICARE, OTHER, SELFPAY | END 2025-03-18 09:08 | disposition home or self-care (01) | LOC: RAD 03-22 05:53 | PROVIDERS: PCP Family Medicine; Visit Provider Podiatrist Foot & Ankle Surgery | DX: Z53.9 Procedure and treatment not carried out, unspecified reason (principal) | CPT/HCPCS: 73721 ==

== ENCOUNTER 2025-03-20 10:16 | Oncology outpatient (recurring) (ONCR) | payer MEDICARE, OTHER, SELFPAY ==
--- NOTE | 2025-03-03 11:21 | ONCRAD TMN_ITS ---
Radiation Oncology Weekly Treatment Management Patient: Meka Garibay MR#: [id number] : 1950 Attending Physician: Dr. Joe Montalvo Date of Service: 03/03/2025 Referring Physician(s) : Diagnosis: C50.411 - Malignant neoplasm of upper-outer quadrant of right female breast, Diagnosed 12/15/2024 (Active) Radiotherapy to date: Course: RT Breast 2024, Treatment Site: RT Breast Initial, Ref. ID: CTV_WB, Energy: 15X/6X, Dose/Fx (cGy): 266.7, #Fx: , Dose Correction (cGy): 0, Total Dose Delivered (cGy): 1,866.7, Start Date: 02/23/2025, Elapsed Days: 8 Reason for visit: The patient is being seen today as part of their regularly scheduled weekly on treatment visits to assess for acute toxicities from radiotherapy. Review of Systems: Doing well . No complaints. Occasionally using vitamin e oil. Busy at home. Vital Signs: Performed on 03/03/2025 10:56 AM BMI - 30.247 kg/m2 (high), Height - 66 in, Weight - 187.4 lbs, Temperature - 97.7 f, Pulse - 62 /min, Respiration - 17 /min, O2 Sat - 99 %, Pain - 0, Fatigue - 0 and BP - 153/ 74 mm(hg)(high/). Physical Exam: Right breast normal . No significant erythema. Imaging: Radiation therapy imaging related to accurate target localization (i.e. KV, MV and CBCT) was reviewed. Appropriate changes, if any, were made to ensure treatment accuracy. Plan: good tolerance of treatment. Continue as planned. Signed by: Dr. Joe Montalvo 03/03/2025 11:19:58 AM
--- NOTE | 2025-03-10 11:42 | ONCRAD TMN_ITS ---
Radiation Oncology Weekly Treatment Management Patient: Lani Barry MR#: [id number] : 1950> Attending Physician: Cody Barron Date of Service: 03/10/2025 Referring Physician(s) : Dr Abiodun AGUILERA Diagnosis: C50.411 - Malignant neoplasm of upper-outer quadrant of right female breast, Diagnosed 12/15/2024 (Active) Radiotherapy to date: Course: RT Breast 2024, Treatment Site: RT Breast Initial, Ref. ID: CTV_WB, Energy: 15X/6X, Dose/Fx (cGy): 266.7, #Fx: , Dose Correction (cGy): 0, Total Dose Delivered (cGy): 3,200, Start Date: 02/23/2025, Elapsed Days: 15 Reason for visit: The patient is being seen today as part of their regularly scheduled weekly on treatment visits to assess for acute toxicities from radiotherapy. Review of Systems: Mild breast erythema. Inframammary fold dermatitis. Patient complains of itching in that area. Vital Signs: Performed on 03/10/2025 11:03 AM BMI - 30.183 kg/m2 (high), Height - 66 in, Weight - 187 lbs, Temperature - 97.5 f, Pulse - 67 /min, Respiration - 18 /min, O2 Sat - 97 %, Pain - 0, Fatigue - 0 and BP - 144/ 83 mm(hg)(high/). Physical Exam: AAOx3. IMF Dermatitis Imaging: Radiation therapy imaging related to accurate target localization (i.e. KV, MV and CBCT) was reviewed. Appropriate changes, if any, were made to ensure treatment accuracy. Plan: Continue XRT Continue cream Hydrate cortisone for itching. Signed by: Cody Barron 03/10/2025 11:41:12 AM
--- NOTE | 2025-03-17 11:04 | ONCRAD TMN_ITS ---
Radiation Oncology Weekly Treatment Management Patient: Meka Garibay MR#: [id number] : 1950 Attending Physician: Cody Barron Date of Service: 03/17/2025 Referring Physician(s) : Diagnosis: C50.411 - Malignant neoplasm of upper-outer quadrant of right female breast, Diagnosed 12/15/2024 (Active) Radiotherapy to date: Course: RT Breast 2024, Treatment Site: RT Breast Bst, Ref. ID: CTV_Surg_Bed, Energy: 6X, Dose/Fx (cGy): 240, #Fx: 2 / 5, Dose Correction (cGy): 0, Total Dose Delivered (cGy): 480, Start Date: 03/16/2025, End Date: 03/17/2025, Elapsed Days: 1 Course: RT Breast 2024, Treatment Site: RT Breast Initial, Ref. ID: CTV_WB, Energy: 15X/6X, Dose/Fx (cGy): 266.7, #Fx: 15 / 15, Dose Correction (cGy): 0, Total Dose Delivered (cGy): 4,000, Start Date: 02/23/2025, End Date: 03/13/2025 Elapsed Days: 18 Reason for visit: The patient is being seen today as part of their regularly scheduled weekly on treatment visits to assess for acute toxicities from radiotherapy. Review of Systems: Patient with erythema in the treatment portals noted. She states she tried hydrocortisone cream but utilizing Benadryl now with no response. 3 more fractions Vital Signs: Performed on 03/17/2025 10:45 AM BMI - 30.215 kg/m2 (high), Height - 66 in, Weight - 187.2 lbs, Temperature - 97.2 f, Pulse - 99 /min, Respiration - 17 /min, O2 Sat - 97 %, Pain - 0, Fatigue - 0 and BP - 91/ 54 mm(hg)(/low). Physical Exam: AAOx3. Skin erythematous in axilla chest and inframammary fold Imaging: Radiation therapy imaging related to accurate target localization (i.e. KV, MV and CBCT) was reviewed. Appropriate changes, if any, were made to ensure treatment accuracy. Plan: Continue XRT Continue creams Patient is ER/LA + so she will need MO appointment to discuss treatment options Signed by: Cody Barron 03/17/2025 11:02:47 AM
--- NOTE | 2025-03-18 09:30 | MR_ITS ---
WS: [id number] EXAMINATION: MR ankle RT wo con* [id number] ORDER DATE: 03/18/2025 9:30 AM COMPARISON: None. HISTORY: SOFT TISSUE MASS RIGHT ANKLE TECHNIQUE: Axial proton density fat sat, axial T1, sagittal proton density, sagittal STIR, coronal T2 fat sat, and coronal T1 sequences performed. FINDINGS: In the area of concern, distal to the tip of the lateral malleolus, there is a cystic subcutaneous lesion measuring approximately 2.1 x 0.7 cm. This appears fluid signal most compatible with a ganglion cyst. Gadolinium not administered. Distal Achilles appears intact. Tenosynovitis involving the flexor compartment tendons. Peroneal tendons appear intact. Normal bone marrow signal involving the tibial plafond and. Normal bone marrow signal involving the talar dome. Normal medial and lateral malleolus. MR/MR ankle RT wo con* [id number] IMPRESSION: Soft tissue lesion most compatible with a ganglion cyst in the area of concern
--- NOTE | 2025-03-20 10:57 | N.ONRD TS_ITS ---
Radiation Oncology Treatment Summary Patient: Meka Garibay MR#: [id number] : 1950 Age: 74 Sex: Female Dictated by: Cody Barron Date of Service: 03/20/2025 Referring Physician(s) : Diagnosis: C50.411 - Malignant neoplasm of upper-outer quadrant of right female breast, Diagnosed 12/15/2024 (Active) Radiotherapy to Date: Course: RT Breast 2024, Treatment Site: RT Breast Bst, Ref. ID: CTV_Surg_Bed, Energy: 6X, Dose/Fx (cGy): 240, #Fx: 5 / 5, Dose Correction (cGy): 0, Total Dose Delivered (cGy): 1,200, Start Date: 03/16/2025, End Date: 03/20/2025, Elapsed Days: 4 Course: RT Breast 2024, Treatment Site: RT Breast Initial, Ref. ID: CTV_WB, Energy: 15X/6X, Dose/Fx (cGy): 266.7, #Fx: 15 / 15, Dose Correction (cGy): 0, Total Dose Delivered (cGy): 4,000, Start Date: 02/23/2025, End Date: 03/13/2025, Elapsed Days: 18 Clinical Summary: The patient tolerated RT well. Moderate erythema throughout the the breast and right axilla. No palpable masses. Recommended vitamin E and cocoa butter plus Benadryl cream Plan: End of treatment today. Continue on the above medication until the skin reaction resolves. Follow up in one month on April 13, 2025 at 10:45 AM or sooner if need be. Signed by: Cody Barron>03/20/2025 10:56:15 AM <<Signature on File>>
== END 2025-03-29 23:59 | disposition home or self-care (01) ==
PROVIDERS: PCP Family Medicine; Visit Provider Radiology Radiation Oncology
DX: Z51.0 Encounter for antineoplastic radiation therapy (principal); C50.411 Malignant neoplasm of upper-outer quadrant of right female breast; Z17.0 Estrogen receptor positive status [ER+]; L53.8 Other specified erythematous conditions
CPT/HCPCS: 73721; 77336; 77387; 77412; 99024; 99204

== ENCOUNTER → 2025-04-01 10:05 | Outpatient (BNVA) | payer MEDICARE, OTHER, SELFPAY | PROVIDERS: PCP Family Medicine; Visit Provider Podiatrist Foot & Ankle Surgery | DX: M79.89 Other specified soft tissue disorders (principal); M25.571 Pain in right ankle and joints of right foot | CPT/HCPCS: 99213 ==

== ENCOUNTER 2025-04-13 10:44 | Oncology outpatient (recurring) (ONCR) | payer MEDICARE, OTHER, SELFPAY ==
--- NOTE | 2025-04-13 11:31 | ONCRAD EPV_ITS ---
Radiation Oncology Established Patient Visit Patient: Meka Garibay [id number] : 1950 Age: 74 Sex: Female Dictated by: Cody Barron Date of Service: 04/13/2025 Referring Physician(s) : Dr. Springer Diagnosis: C50.411 - Malignant neoplasm of upper-outer quadrant of right female breast, Diagnosed 12/15/2024 (Active) Radiotherapy to Date: Course: RT Breast 2024, Treatment Site: RT Breast Bst, Ref. ID: CTV_Surg_Bed, Energy: 6X, Dose/Fx (cGy): 240, #Fx: 5 / 5, Dose Correction (cGy): 0, Total Dose Delivered (cGy): 1,200, Start Date: 03/16/2025, End Date: 03/20/2025, Elapsed Days: 4 Course: RT Breast 2024, Treatment Site: RT Breast Initial, Ref. ID: CTV_WB, Energy: 15X/6X, Dose/Fx (cGy): 266.7, #Fx: , Dose Correction (cGy): 0, Total Dose Delivered (cGy): 4,000, Start Date: 02/23/2025, End Date: 03/13/2025, Elapsed Days: 18 Current History: This is a pleasant 74-year-old female returning after receiving XRT to the RIGHT BREAST. She is well healed from her skin reaction. She saw Dr. Carlos who is going to place her on Arimidex. Patient denies any problems at this time. Current Medications: albuterol sulfate 0.63 mg inhalation QID PRN cetirizine 10 mg PO DAILY PRN cholecalciferol (vitamin D3) 125 mcg PO DAILY fluticasone propionate 50 mcg/actuation (Flonase Allergy Relief) 1 spray intranasal DAILY lisinopril 20 mg PO DAILY magnesium oxide 400 mg PO DAILY potassium gluconate 595 mg PO DAILY zinc acetate 50 mg PO DAILY Allergies: Fish Containing Products Allergy (Verified 04/13/25 10:55) Unknown sulfur (From Sulfur-8) Allergy (Verified 04/13/25 10:55) unknown Current Complaints / Review of Systems: . Vital Signs: Performed on 04/13/2025 11:09 AM BMI - 30.828 kg/m2 (high), Height - 66 in, Weight - 191 lbs, Temperature - 98.3 f, Pulse - 76 /min, Respiration - 16 /min, O2 Sat - 96 %, Pain - 0, Fatigue - 0 and BP - 114/ 73 mm(hg). Physical Exam: General: Alert and oriented x 3. No acute distress. HEENT: Normocephalic, atraumatic. Extraocular Movements Intact: Pupils Equal, Round, Reactive to Light and Accommodation: Sclerae anicteric. Oral cavity is clear without lesions, masses or ulcers. NECK: Supple without supraclavicular or jugular lymphadenopathy. LUNGS: Clear to auscultation bilaterally without rales, rhonchi or wheeze. HEART: Regular rate and rhythm, normal S1 and S2 without murmur, gallop or rub. BREAST: Pendulous and intact x 2. Right breast slightly larger with hyperpigmentation at this time. There is sentinel lymph node staining just above the nipple areolar complex. No masses could be appreciated in the RIGHT Breast/axilla without abnormality. MUSCULOSKELETAL: No tenderness or percussion pain over the axial skeleton, scapulae or pelvis. ABDOMEN: Soft, nontender, nondistended without masses or organomegaly. Bowell sounds are present. EXTREMITIES: No peripheral edema is identified. Limited motor and sensory examination are grossly intact and symmetric bilaterally. NEUROLOGIC: Cranial nerves II ???XII are grossly intact. Normal sensation, strength 5/5 in all extremities, normal gait, no ataxia. Performance Status: KPS 90 Lab: None pending. Pathology: Primary, c50.411 - malignant neoplasm of upper-outer quadrant of right female breast, Diagnosed 12/15/2024 (active) . Imaging: See HPI Impression: RIGHT IDC-UOQ PLAN: Start Arimidex. RTC in 3 months or sooner if need be. Signed by: 04/13/2025 11:30:11 AM <<Signature on File>> Time spent with patient: 20 minutes Global period. CPT Code: CPT Code:
== END 2025-04-28 23:59 | disposition home or self-care (01) ==
PROVIDERS: PCP Family Medicine; Visit Provider Radiology Radiation Oncology
DX: C50.411 Malignant neoplasm of upper-outer quadrant of right female breast (principal); Z92.3 Personal history of irradiation; Z87.891 Personal history of nicotine dependence; Z79.899 Other long term (current) drug therapy
CPT/HCPCS: 99024; 99214

== ENCOUNTER 2025-04-22 12:40 | Outpatient (CLI) | payer MEDICARE, OTHER, SELFPAY ==
--- NOTE | 2025-04-22 13:00 | XR_ITS ---
WS: [id number] SCREENING DEXA SCAN [place] Depollution CLINICAL INFORMATION: post menopausal COMPARISON: None. FINDINGS: The L1-L4 bone mineral density measures 1.19. This corresponds to a T score score of 0.0 and Z score of 1.0. Left femoral neck bone mineral density measures 0.846 g/cm2. This corresponds to a T score of -1.3 and Z score of -0.1. Right femoral neck bone mineral density measures 0.807 g/cm2. This corresponds to a T score -1.6of and Z score of -0.5. Mean femoral neck bone mineral density measures 0.826 g/cm2. This corresponds to a T score of -1.4 and Z score of -0.3. XR/XR DEXA axial skeleton* [id number] IMPRESSION: Normal bone mineralization lumbar spine. Osteopenia femoral necks. Patient's FRAX calculated 10 year probability for major osteoporotic fracture i s 21.7% and osteoporotic hip fracture is 10.4%.
== END 2025-04-22 12:41 | disposition home or self-care (01) ==
PROVIDERS: PCP Family Medicine; Visit Provider Internal Medicine Medical Oncology
DX: Z13.820 Encounter for screening for osteoporosis (principal); Z78.0 Asymptomatic menopausal state; M79.89 Other specified soft tissue disorders; C50.911 Malignant neoplasm of unspecified site of right female breast; M85.88 Other specified disorders of bone density and structure, other site
CPT/HCPCS: 77080

== ENCOUNTER 2025-07-13 09:19 | Oncology outpatient (recurring) (ONCR) | payer MEDICARE, OTHER, SELFPAY ==
[2025-07-13 09:57] LABS: Hematocrit 38.7 % (36-47); Hemoglobin 12.60 g/dL (11.27-16.99); Mean Corpuscular HGB Conc 32.6 g/dL (30-55); Mean Corpuscular Hemoglobin 29.6 pg (27-33); Mean Corpuscular Volume 90.8 fl (85-98); Nucleated Red Blood Cells % 0 %; Platelet Count 214 10^3/cmm (157-399); Red Blood Count 4.26 10^6/uL (3.85-5.65); White Blood Count 5.26 10^3/uL (3.29-11.43)
[2025-07-13 10:19] LABS: Alanine Aminotransferase 13 U/L (0-33); Albumin Level 4.4 g/dL (3.5-5.2); Alkaline Phosphatase 61 U/L (35-105); Anion Gap 14.2 (5-19); Aspartate Amino Transferase 15 U/L (0-32); Blood Urea Nitrogen 10 mg/dL (8-23); Calcium 9.5 mg/dL (8.5-10.5); Carbon Dioxide 27 mmol/L (22-29); Chloride 102 mmol/L (98-107); Globulin 2.4 g/dL (1.3-4.6); Glucose 101 mg/dL (65-115); Osmolality Calculated 287 mOsm/kg (285-295); Potassium 4.2 mmol/L (3.5-5.1); Sodium 139 mmol/L (136-145); Total Protein 6.8 g/dL (6.6-8.7)
--- NOTE | 2025-07-13 11:06 | ONCRAD EPV_ITS ---
Radiation Oncology Established Patient Visit Patient: Lani Ackerman [id number] : 1950> Age: 74> Sex: Female> Dictated by: Cody Barron Date of Service: 07/13/2025 Referring Physician(s) : Dr. Bradshaw Diagnosis: C50.411 - Malignant neoplasm of upper-outer quadrant of right female breast, Diagnosed 12/15/2024 (Active) Radiotherapy to Date: Course: RT Breast 2024, Treatment Site: RT Breast Bst, Ref. ID: CTV_Surg_Bed, Energy: 6X, Dose/Fx (cGy): 240, #Fx: 5 / 5, Dose Correction (cGy): 0, Total Dose Delivered (cGy): 1,200, Start Date: 03/16/2025, End Date: 03/20/2025, Elapsed Days: 4 Course: RT Breast 2024, Treatment Site: RT Breast Initial, Ref. ID: CTV_WB, Energy: 15X/6X, Dose/Fx (cGy): 266.7, #Fx: 15 / 15, Dose Correction (cGy): 0, Total Dose Delivered (cGy): 4,000, Start Date: 02/23/2025, End Date: 03/13/2025, Elapsed Days: 18 Current History: This is a pleasant 74-year-old female returning after receiving XRT to the RIGHT BREAST completing this on 03/20/2025. She is well healed from her skin reaction. She saw Dr. Srpinger who placed her on Arimidex. DEXA scan was performed on 04/22/2025 which showed normalized lumbar spine but osteopenia of the femoral neck's. Dr. Springer has seen her today and ordered treatment regarding this. Patient denies any problems at this time. Current Medications: albuterol sulfate 0.63 mg inhalation QID PRN cetirizine 10 mg PO DAILY PRN cholecalciferol (vitamin D3) 125 mcg PO DAILY fluticasone propionate 50 mcg/actuation (Flonase Allergy Relief) 1 spray intranasal DAILY lisinopril 20 mg PO DAILY magnesium oxide 400 mg PO DAILY potassium gluconate 595 mg PO DAILY zinc acetate 50 mg PO DAILY Arimidex 1 mg PO DAILY Allergies: Fish Containing Products Allergy (Verified 04/13/25 10:55) Unknown sulfur (From Sulfur-8) Allergy (Verified 04/13/25 10:55) unknown Current Complaints / Review of Systems: . Vital Signs: Performed on 07/13/2025 9:58 AM BMI - 30.054 kg/m2 (high), Height - 66 in, Weight - 186.2 lbs, Temperature - 97 f, Pulse - 64 /min, Respiration - 18 /min, O2 Sat - 98 %, Pain - 0, Fatigue - 0 and BP - 127/ 64 mm(hg)(/low). Physical Exam: General: Alert and oriented x 3. No acute distress. HEENT: Normocephalic, atraumatic. Extraocular Movements Intact: Pupils Equal, Round, Reactive to Light and Accommodation: Sclerae anicteric. Oral cavity is clear without lesions, masses or ulcers. NECK: Supple without supraclavicular or jugular lymphadenopathy. LUNGS: Clear to auscultation bilaterally without rales, rhonchi or wheeze. HEART: Regular rate and rhythm, normal S1 and S2 without murmur, gallop or rub. BREAST: Left breast pendulous no apparent masses. Right breast shows healed treatment effects from from XRT. No nodularity in the scar line. MUSCULOSKELETAL: No tenderness or percussion pain over the axial skeleton, scapulae or pelvis. ABDOMEN: Soft, nontender, nondistended without masses or organomegaly. Bowell sounds are present. EXTREMITIES: No peripheral edema is identified. Limited motor and sensory examination are grossly intact and symmetric bilaterally. NEUROLOGIC: Cranial nerves II ???XII are grossly intact. Normal sensation, strength 5/5 in all extremities, normal gait, no ataxia. Performance Status: KPS 90 Lab: None pending. Pathology: Primary, c50.411 - malignant neoplasm of upper-outer quadrant of right female breast, Diagnosed 12/15/2024 (active) . Imaging: See HPI Impression: Right breast cancer Osteopenia of the femoral necks noted on DEXA scan PLAN: Continue Arimidex Treat noted osteopenia of the femoral necks from DEXA scan RTC in 3 months or sooner if need be. Signed by: 07/13/2025 11:05:01 AM <<Signature on File>> Time spent with patient: CPT Code: CPT Code:
== END 2025-07-29 23:59 | disposition home or self-care (01) ==
PROVIDERS: Internal Medicine Medical Oncology; PCP Family Medicine; Visit Provider Nurse Practitioner
DX: C50.411 Malignant neoplasm of upper-outer quadrant of right female breast (principal); Z17.0 Estrogen receptor positive status [ER+]; Z92.3 Personal history of irradiation; Z87.891 Personal history of nicotine dependence; Z79.899 Other long term (current) drug therapy; M79.89 Other specified soft tissue disorders; M85.859 Other specified disorders of bone density and structure, unspecified thigh; Z78.0 Asymptomatic menopausal state; Z79.811 Long term (current) use of aromatase inhibitors
CPT/HCPCS: 36415; 80053; 82306; 85025; 99213